=== PATIENT | male | born 1955 | race Caucasian/White ===

== ENCOUNTER 2021-03-03 07:07 | Outpatient (CLI) | payer MEDICARE ==
[~2021-03-03 07:07] MED LIST: ALPR0.5T7 PO; ASPI-152 PO; ASPI-496 PO; ATOR-2 PO; HYDR-3248 PO; HYDR1TAB13 PO; LISI-167 PO; METO25TA35 PO; METO25TA91 PO; MULT-6 PO; OMEP20CA9 PO; PROP300T PO
[2021-03-03] MEDS ORDERED: TAMS-11 PO (07:49)
[2021-03-03] MEDS ORDERED: L.AC1CAP6 PO (07:49)
[2021-03-03] MEDS ORDERED: ASPI-1026 PO (07:49)
[2021-03-03] MEDS ORDERED: NITR100C6 PO (07:49)
[2021-03-03 08:28] LABS: BASOPHILS % (AUTO) 1 % (0-1); EOSINOPHILS % (AUTO) 4 % (1-7); LYMPHOCYTES % (AUTO) 30 % (22-44); MEAN CORPUSCULAR HEMOGLOBIN 31.5 pg (27.5-34.5); MEAN CORPUSCULAR HGB CONC 34.2 g/dL (33.2-36.2); MEAN PLATELET VOLUME 8.9 fL (7.4-10.4); MONOCYTES % (AUTO) 11 % (2-9); NEUTROPHILS % (AUTO) 54 % (42-75); PLATELET COUNT 134 x10^3/uL (130-400); RED BLOOD COUNT 5.03 x10^6/uL (4.38-5.82)
[2021-03-03 08:38] LABS: ALANINE AMINOTRANSFERASE 26 U/L (12-78); ALBUMIN 3.4 g/dL (3.4-5.0); CALCIUM 8.6 mg/dL (8.5-10.1); CREATININE 0.88 mg/dL (0.7-1.3)
[2021-03-03 08:48] LABS: ANION GAP 5 mmol/L (5-15); CHLORIDE 112 mmol/L (98-107)
[2021-03-03 08:52] LABS: ALKALINE PHOSPHATASE 52 U/L (45-117); BILIRUBIN,TOTAL 0.6 mg/dL (0.2-1.0); TOTAL PROTEIN 6.8 g/dL (6.4-8.2)
== END 2021-03-03 23:59 | disposition home or self-care (01) ==
LOC: STAR 07:07
PROVIDERS: ATTEND Urology
DX: Z01.818 Encounter for other preprocedural examination (principal); Z20.822 Contact with and (suspected) exposure to COVID-19; N35.919 Unspecified urethral stricture, male, unspecified site
CPT/HCPCS: 36415; 80053; 85025; 93005; U0003; U0005

== ENCOUNTER 2021-03-07 11:55 | Day surgery (SDC) | payer MEDICARE ==
[~2021-03-07] VITALS: Ht 185.4 cm; Wt 111.4 kg
[~2021-03-07 11:55] MED LIST changes: +ASPI-1026 PO; +L.AC1CAP6 PO; +NITR100C6 PO; +TAMS-11 PO
[2021-03-07 12:32] VITALS: BP 131/83
[2021-03-07] MEDS ORDERED: ASPI-963 PO (12:42)
[2021-03-07] MEDS ORDERED: CHLORHEXIDINE 15 ML UDC PO ONE (13:00)
[2021-03-07] MEDS ORDERED: LACTATED RINGERS 1,000 ML IV SCH (13:00)
[2021-03-07] MEDS ORDERED: NEOSPORIN OINT, 15GM ONE (13:19)
[2021-03-07] MEDS ORDERED: BUPIVACAINE/PF 0.25% ONE (13:19)
[2021-03-07] MEDS ORDERED: LIDOCAINE/PF 1%-EPI 1:200K, 30 ML ONE (13:19)
[2021-03-07] MEDS ORDERED: METHYLENE BLUE 50 MG/10 ML AMP ONE (13:19)
[2021-03-07] MEDS ORDERED: FENTANYL PF 250 MCG/5ML ONE (14:36)
[2021-03-07] MEDS ORDERED: METOPROLOL 1 MG/ML, 5ML IV PRN (15:30)
[2021-03-07] MEDS ORDERED: ACETAMINOPHEN 325 MG TABLET PO PRN (15:30)
[2021-03-07] MEDS ORDERED: HYDROmorphone 1 MG/ML, 1ML INJ IVPush PRN (15:30)
[2021-03-07] MEDS ORDERED: LORazepam 2 MG/ML, 1ML IVPush PRN (15:30)
[2021-03-07] MEDS ORDERED: PROMETHAZINE 25 MG SUPP PR PRN (15:30)
[2021-03-07] MEDS ORDERED: ONDANSETRON 2MG/ML, 2ML IVPush PRN (15:30)
[2021-03-07] MEDS ORDERED: MEPERIDINE/PF 25MG/0.5ML IVPush PRN (15:30)
[2021-03-07] MEDS ORDERED: HALOPERIDOL 5 MG/ML IV PRN (15:30)
[2021-03-07] MEDS ORDERED: hydrALAzine 20 MG/ML, 1ML IV PRN (15:30)
[2021-03-07] MEDS ORDERED: ALBUTEROL/IPRATROPIUM 2.5MG/0.5MG, 3 ML NPPB PRN (15:30)
[2021-03-07] MEDS ORDERED: LABETALOL 5MG/ML, 20ML IV PRN (15:30)
[2021-03-07] MEDS ORDERED: PROMETHAZINE 25 MG/ML, 1ML IVPush PRN (15:30)
[2021-03-07] MEDS ORDERED: OXYcodone 5 MG/5 ML ORAL.SOL UDC PO PRN (15:30)
[2021-03-07] MEDS ORDERED: METHOCARBAMOL 1,000 MG in DEXTROSE 5% 100 ML IV PRN (15:30)
[2021-03-07] MEDS ORDERED: FENTANYL PF 100 MCG/2ML IV PRN (15:30)
[2021-03-07] MEDS ORDERED: HYDROmorphone 2 MG/ML, 1ML ONE (16:25)
[2021-03-07] MEDS ORDERED: CEFAZOLIN 1,000 MG ONE (18:51)
[2021-03-07] MEDS ORDERED: SUCCINYLCHOLINE 20 MG/ML, 10ML ONE (18:51)
[2021-03-07] MEDS ORDERED: ROCURONIUM 10MG/ML,5ML ONE (18:51)
[2021-03-07] MEDS ORDERED: PROPOFOL 10 MG/ML, 20ML ONE (18:51)
[2021-03-07] MEDS ORDERED: ONDANSETRON 2MG/ML, 2ML ONE (18:51)
[2021-03-07] MEDS ORDERED: GLYCOPYRROLATE 0.2MG/1ML, 5ML ONE (18:51)
[2021-03-07] MEDS ORDERED: DEXAMETHASONE 4 MG/ML, 1ML ONE (18:51)
[2021-03-07] MEDS ORDERED: NEOSTIGMINE 1 MG/ML, 10ML ONE (18:51)
== END 2021-03-07 23:15 | disposition home or self-care (01) ==
LOC: OUT 11:55 → 4NE 15:00 → OUT 23:15
PROVIDERS: ATTEND Urology
DX: N35.819 Other urethral stricture, male, unspecified site (principal); I10 Essential (primary) hypertension; I48.91 Unspecified atrial fibrillation; F17.210 Nicotine dependence, cigarettes, uncomplicated; Z79.82 Long term (current) use of aspirin; Z72.89 Other problems related to lifestyle; Z79.899 Other long term (current) drug therapy; Z98.890 Other specified postprocedural states
CPT/HCPCS: 14041; 40818; 53400; C1760; J0690; J1100; J1170; J2405; J2704; J2710; J3010; Q9968; G0378; J0330

== ENCOUNTER 2021-03-27 18:09 | Emergency (ER) | payer MEDICARE ==
[~2021-03-27] VITALS: Ht 182.9 cm; Wt 113.0 kg
[~2021-03-27 18:09] MED LIST changes: +ASPI-963 PO
--- NOTE | 2021-03-27 18:57 | NUR ---
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
[2021-03-27 19:35] VITALS: BP 117/74
[2021-03-27 20:38] LABS: MICROSCOPIC AUTO
== END 2021-03-27 22:02 | disposition home or self-care (01) ==
LOC: ED 18:30
DX: R33.9 Retention of urine, unspecified (principal); I10 Essential (primary) hypertension; I48.91 Unspecified atrial fibrillation; Z90.89 Acquired absence of other organs; Z95.0 Presence of cardiac pacemaker; F17.210 Nicotine dependence, cigarettes, uncomplicated
CPT/HCPCS: 51702; 81001; 87086; 99284